=== PATIENT | female | born 1965 | race Caucasian/White ===

== ENCOUNTER 2022-07-25 13:44 | Emergency (ER) | payer MEDICARE | END 2022-07-25 16:18 | disposition home or self-care (01) | LOC: MW.ED 13:44 | DX: S09.90XA Unspecified injury of head, initial encounter (principal); Z88.2 Allergy status to sulfonamides; W00.2XXA Other fall from one level to another due to ice and snow, initial encounter; Y93.89 Activity, other specified | CPT/HCPCS: 70450; 70450-26; 72125; 72125-26; 72128; 72128-26; 99283 ==